=== PATIENT | male | born 1935 | race Two or more races ===

== ENCOUNTER → 2017-02-01 | Outpatient (CLI) | payer MEDICARE ==
--- NOTE | 2017-02-01 13:43 | RAD ---
Indication right knee pain for a month. No history of injury. A standing AP view incorporated in both knees was obtained as well as individual AP oblique and lateral views of the right knee. No acute finding is seen. There is some very minimal medial joint space compartment narrowing involving both knees but certainly marked degenerative changes are not seen involving either knee particularly given the patient's age. Vascular calcification is noted. IMPRESSION: Minimal degenerative change involving both knees
== END | disposition home or self-care (01) ==
LOC: RAD 12:52
PROVIDERS: ATTEND Family Medicine
DX: M17.0 Bilateral primary osteoarthritis of knee (principal)
CPT/HCPCS: 73562; 73565

== ENCOUNTER → 2019-09-11 | Outpatient (CLI) | payer MEDICARE ==
--- NOTE | 2019-09-11 12:15 | RAD ---
EXAM: Left hand radiograph 09/11/2019 12:00 AM CLINICAL INDICATION:Left hand pain and swelling COMPARISON:None TECHNIQUE:3 views of the left hand FINDINGS:No acute fracture. There is moderate joint space narrowing with small osteophytes at the thumb MCP joint. There is ulnar subluxation of the thumb distal phalanx relative to the metacarpal head. Chondrocalcinosis is seen in the joint. There is mild joint space narrowing with small osteophytes and throughout the distal interphalangeal joints. Mild soft tissue swelling around the second and third DIP joints. The remaining joint spaces are maintained. No erosions. Chondrocalcinosis is also seen in the triangular fibrocartilage complex. Vascular calcifications are noted. 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 Mild degenerative joint disease of the interphalangeal joints. Electronically signed by: Karina Montalvo MD (09/11/2019 12:12 PM) [id number]
== END | disposition home or self-care (01) ==
LOC: RAD 11:16
PROVIDERS: ATTEND Family Medicine
DX: S63.112A Subluxation of metacarpophalangeal joint of left thumb, initial encounter (principal); M18.9 Osteoarthritis of first carpometacarpal joint, unspecified; M19.042 Primary osteoarthritis, left hand; X58.XXXA Exposure to other specified factors, initial encounter; Y93.89 Activity, other specified; Y92.89 Other specified places as the place of occurrence of the external cause; Y99.8 Other external cause status
CPT/HCPCS: 73130

== ENCOUNTER 2021-06-30 06:21 | Emergency (ER) | payer MEDICARE ==
[~2021-06-30] VITALS: Ht 162.6 cm; Wt 52.8 kg
--- NOTE | 2021-06-30 06:32 | PHYS DOC ---
Past Medical History Past Medical History: No Pertinent History Smoking Status: Current Every Day Smoker Alcohol Use: None Drug Use: None General Adult EDM: Chief Complaint: COUGH HPI: HPI: Patient is a 86 year old male who presents with 2-day history of cough, shortness of breath, chest pain, and he reports that he is coughing up a little bit of blood. No fever or chills. He denies abdominal pain, nausea or vomiting. His son reports that other family members are sick with similar symptoms. The patient has been fully vaccinated against COVID-19, including booster. Unsure of influenza vaccination status. The patient reports that he has had constant chest pressure with shortness of breath, pain worse with coughing for the past 2 days. No dizziness, diaphoresis, syncope. No lower extremity pain or swelling. No recent travel, no recent hospitalization within the last 90 days, no recent antibiotics. No recent surgeries. No recent immobilization or prolonged travel. Review of Systems: Review of Systems: Constitutional: Denies fever or chills. [] HENT: Mild nasal congestion, denies sore throat or voice changes. Respiratory: Off, hemoptysis, shortness of breath. Cardiovascular: Chest pain. No peripheral edema. No syncope GI: Denies abdominal pain, nausea, vomiting, or diarrhea Musculoskeletal: Denies back pain or joint pain. [] Integument: Denies rash. [] Neurologic: Denies headache, focal weakness or sensory changes. Denies syncope or dizziness. Psychiatric: Denies depression or anxiety. [] Heart Score: C/O Chest Pain: Yes HEART Score for Chest Pain: HEART Score for Chest Pain Response (Comments) Value ECG Nonspecific Repolarizatio 1 Age > 65 2 Risk Factors No Risk Factors 0 Troponin < Normal Limit 0 Total 3 Risk Factors: Risk Factors: DM, Current or recent (<one month) smoker, HTN, HLP, family history of CAD, obesity. Risk Scores: Score 0 - 3: 2.5% MACE over next 6 weeks - Discharge Home Score 4 - 6: 20.3% MACE over next 6 weeks - Admit for Clinical Observation Score 7 - 10: 72.7% MACE over next 6 weeks - Early Invasive Strategies Physical Exam: PE: Constitutional: He is frail and chronically ill-appearing. He does appear to be at least mildly acutely ill-appearing. Nontoxic. HENT: Normocephalic, atraumatic, oropharynx is patent and clear, mucous membranes are moist. No oral or facial swelling or edema Eyes: Conjunctive are normal, sclera are clear and anicteric Neck: Normal range of motion, no tenderness, supple, no stridor. Trachea midline, no JVD, no meningismus Cardiovascular:Heart rate regular rhythm, +2 radial and +2 posterior tibial pulses bilaterally. Lungs & Thorax: End expiratory wheezing bilaterally, coarse rhonchi in the left upper and lower lung longo. Moderate tachypnea. No stridor. Speaks in clear sentences. No cyanosis Abdomen: Abdomen is soft, nondistended, nontender to palpation, no palpable masses organomegaly Skin: Warm, dry, no erythema, no rash. [] Back: No tenderness, no CVA tenderness. [] Extremities: No tenderness, no cyanosis, no clubbing, ROM intact, no edema. Calf tenderness. Arm and well-perfused. Neurologic: Alert and oriented X 3, normal motor function, normal sensory function, no focal deficits noted. [] Psychologic: Affect is flat. EKG: EKG: EKG is interpreted at 0639 Rhythm is sinus Rate is 98 bpm Finley is normal No STEMI Radiology/Procedures: Radiology/Procedures: IMAGING REPORT Signed PATIENT: SOPHIE AUGUSTINEACCOUNT: [id number] : 1935 LOCATION: ER AGE: 86 SEX: M EXAM STATUS: REG ER ORD. PHYSICIAN: GREGORIO LIANG DO REASON: cough, dyspnea PROCEDURE: PORTABLE CHEST 1V XR CHEST 1V INDICATION: cough, dyspnea . COMPARISON STUDY: 05/09/2019, 02/28/2015. FINDINGS: Lungs: Normal lung volume. Stable right mid lung and left mid lung linear opacities. The tracheobronchial tree and hilar structures are normal. Pleura: No pleural effusion or pneumothorax. Heart and Mediastinum: The cardiomediastinal silhouette is normal. The great vessels of the thorax are normal. Bones and Soft Tissues: The bones and soft tissues are within normal limits. IMPRESSION: Stable bilateral mid lung linear opacities. No new consolidation. Electronically signed by: Megan Ramon MD (06/30/2021 7:37 AM) [id number] DICTATED and SIGNED BY: MEGAN RAMON MD DATE: 06/30/21 [id number] 0 Course & Med Decision Making: Course & Med Decision Making Pertinent Labs and Imaging studies reviewed. (See chart for details) The patient is given a DuoNeb treatment. He is given IV Rocephin and p.o. azithromycin. He reports no further chest pain, he reports no further dyspnea. He manifest no evidence of acute distress, tachypnea seems to be resolved at this time. Room air oxygen saturation is stable. I have discussed the findings, differential diagnosis and plan of care with the patient. He declines to stay for any further evaluation or treatment, he declines admission. He prefers to go home. He does have a primary care physician with whom he can follow-up. I discussed very strict return precautions with the patient and with his son, all parties verbalized understanding. Dragon Disclaimer: Dragon Disclaimer: This electronic medical record was generated, in whole or in part, using a voice recognition dictation system. Departure Departure Impression: Primary Impression: Community acquired pneumonia Qualified Codes: J18.9 - Pneumonia, unspecified organism Disposition: HOME / SELF CARE / HOMELESS Condition: STABLE Referrals: KELLY MARLEY MD (PCP) Patient Instructions: Pneumonia, Adult Additional Instructions: As neededPlease return to the ER for more severe chest pain, more severe shortness of breath, if you develop severe dizziness, weakness, uncontrolled vomiting, abdominal pain, dehydration or any other concerns. Take the full course of antibiotics as directed. Use the cough medicine and breathing. Please contact your primary care doctor this week to arrange for close follow- up. Scripts Albuterol Sulfate (VENTOLIN HFA INHALER) 18 Gm Hfa.aer.ad 2 PUFF INH Q4HRS for FOR ASTHMA, #1 EACH 1 Refill Prov: GREGORIO LIANG DO 06/30/21 Cefdinir (CEFDINIR) 300 Mg Capsule 1 CAP PO BID for 7 Days, #14 CAP Prov: GREGORIO LIANG DO 06/30/21 Azithromycin (AZITHROMYCIN TABLET) 250 Mg Tablet 250 MG PO DAILY for ANTI-BIOTIC for 4 Days, #4 TAB 0 Refills start next dose on 07/01/2021 Prov: GREGORIO LIANG DO 06/30/21 Benzonatate (BENZONATATE) 200 Mg Capsule 200 MG PO TID PRN for COUGH, #20 CAP Prov: GREGORIO LIANG DO 06/30/21 GREGORIO LIANG DO Jun 30, 2021 06:32
--- NOTE | 2021-06-30 06:54 | EKG ---
[facility] [address] [place] [address] Test Date: 2021-06-30 Test Time: 06:39:16 Pat Name: SOPHIE AUGUSTINE Department: Room: Gender: M Supervisor Lens Generating: : 1935 Requested By: GREGORIO LIANG Order Number: [id number] Reading MD: Tomas France Measurements Intervals [place] Rate: 98 P: 62 MO: 162 QRS: 65 QRSD: 88 T: 73 QT: 358 QTc: 459 Interpretive Statements SINUS RHYTHM Electronically Signed On 07-02-2021 8:39:09 FINANCIAL ANALYST by Tomas France
[2021-06-30 07:04] LABS: CALCIUM 9.4 mg/dL (8.5-10.1); GFR 70.8; POTASSIUM 3.8 mmol/L (3.5-5.1)
[2021-06-30 07:10] LABS: ALBUMIN 3.8 g/dL (3.4-5.0); ALBUMIN/GLOBULIN RATIO 0.9 (1.0-1.7); MAGNESIUM 1.9 mg/dL (1.8-2.4); TOTAL BILIRUBIN 1.1 mg/dL (0.2-1.0); TOTAL PROTEIN 7.9 g/dL (6.4-8.2)
[2021-06-30] MEDS ORDERED: AZITHROMYCIN 250 MG TABLET. PO ONE (07:15)
[2021-06-30] MEDS ORDERED: cefTRIAXone IV Push 1 GM VIAL. IVP ONE (07:15)
[2021-06-30 07:18] LABS: BASO % 1 % (0-3); EOS # 0.1 x10^3/uL (0.0-0.7); EOS % 3 % (0-3); HEMATOCRIT 42.1 % (39.0-53.0); LYMPH # 1.3 x10^3/uL (1.0-4.8); LYMPH % 23 % (24-48); MEAN CORPUSCULAR HEMOGLOBIN 34 pg (25-35); MEAN CORPUSCULAR HGB CONC 33 g/dL (31-37); MEAN CORPUSCULAR VOLUME 102 fL (79-100); MONO # 0.6 x10^3/uL (0.0-1.1); MONO % 11 % (0-9); NEUT # 3.5 x10^3/uL (1.8-7.7); NEUT % 63 % (31-73); PLATELET COUNT 171 x10^3/uL (140-400); RED BLOOD COUNT 4.12 x10^6/uL (4.30-5.70); RED CELL DISTRIBUTION WIDTH 14.7 % (11.5-14.5); WHITE BLOOD COUNT 5.5 x10^3/uL (4.0-11.0)
[2021-06-30 07:21] LABS: PARTIAL THROMBOPLASTIN TIME 26 SEC (24-38); PROTHROMBIN TIME PATIENT 13.8 SEC (11.7-14.0)
[2021-06-30 07:24] LABS: D-DIMER < 0.27 ug/mlFEU (0.00-0.50)
--- NOTE | 2021-06-30 07:39 | RAD ---
XR CHEST 1V INDICATION: cough, dyspnea . COMPARISON STUDY: 05/09/2019, 02/28/2015. FINDINGS: Lungs: Normal lung volume. Stable right mid lung and left mid lung linear opacities. The tracheobronc hial tree and hilar structures are normal. Pleura: No pleural effusion or pneumothorax. Heart and Mediastinum: The cardiomediastinal silhouette is normal. The great vessels of the thorax ar e normal. Bones and Soft Tissues: The bones and soft tissues are within normal limits. IMPRESSION: Stable bilateral mid lung linear opacities. No new consolidation. Electronically signed by: Mane Ramon MD (06/30/2021 7:37 AM) [id number]
[2021-06-30 07:43] LABS: INFLUENZA A PATIENT NEGATIVE (NEGATIVE); INFLUENZA B PATIENT NEGATIVE (NEGATIVE)
[2021-06-30] MEDS ORDERED: IPRATRPIUM/ALBUTEROL 0.5/2.5MG 3 ML NEBU. NEB ONE (08:00)
[2021-06-30] MEDS ORDERED: BENZ200C47 PO (10:09)
[2021-06-30] MEDS ORDERED: AZIT250T6 PO (10:09)
[2021-06-30] MEDS ORDERED: VENTOLIN HFA18 GM INH (10:09)
[2021-06-30] MEDS ORDERED: CEFD300C PO (10:09)
[2021-06-30 10:42] VITALS: BP 153/73
== END 2021-06-30 11:24 | disposition home or self-care (01) ==
LOC: ER 06:21
DX: J18.9 Pneumonia, unspecified organism (principal); Z20.822 Contact with and (suspected) exposure to COVID-19; F17.200 Nicotine dependence, unspecified, uncomplicated
CPT/HCPCS: 36415; 71045; 80053; 83605; 83735; 83880; 84484; 85025; 85379; 85610; 85730; 87040; 87428; 93005; 94640; 96374; 99285; J0696